=== PATIENT | male | born 1960 | race Caucasian/White ===

== ENCOUNTER 2016-09-28 13:57 | Emergency (ER) | payer OTHER ==
[~2016-09-28] VITALS: Ht 167.6 cm; Wt 42.3 kg
[~2016-09-28 13:57] MED LIST: BENZAMYCIN GE46.6 GM TP; BISAC-EVAC10 MG PR; CALCIUM 500 +1 EACH GT; CEFTIN500 MG PO; DAILY MULTIPLE1 EACH GT; DAILY VITAMIN1 EAC8 GT; DEPAKENE250 MG/5 M PO; DIAZEPAM5 MG GT; FOSAMAX70 MG GT; FOSAMAX70 MG PO; HIBICLENS118 ML TP; MOTRIN400 MG GT; NEURONTIN300 MG GT; PROMETHAZINE HC25 MG PR; SUDOGEST60 MG PO; TEGRETOL200 MG GT; TYLENOL REGULA325 MG GT; VIMPAT10 MG/1 ML GT; [UNRECOGNIZED DRUG - OTHER] GT
[2016-09-28 16:57] VITALS: BP 123/89
== END 2016-09-28 16:58 | disposition home or self-care (01) ==
LOC: EME → EDBD 13:57 → EME 13:57
DX: R06.00 Dyspnea, unspecified (principal); R09.02 Hypoxemia; F72 Severe intellectual disabilities; Z93.1 Gastrostomy status
CPT/HCPCS: 71010

== ENCOUNTER 2017-11-11 10:40 | Inpatient (IN) | payer OTHER ==
[~2017-11-11] VITALS: Ht 152.4 cm; Wt 51.2 kg
[~2017-11-11 10:40] MED LIST changes: +DEPAKENE250 MG/5 M GT; -DEPAKENE250 MG/5 M PO
[2017-11-11 11:55] LABS: BASOPHIL (%) 0.6 % (0-1); EOSINOPHIL (%) 1.2 % (0-5); EOSINOPHIL COUNT 0.1 K/uL (0-0.3); HEMATOCRIT 36.3 % (38.0-50.0); HEMOGLOBIN 12.1 G/DL (12.5-16.6); LYMPHOCYTE (%) 63.6 % (15-42); LYMPHOCYTE COUNT 3.1 K/uL (1.0-2.8); MCHC 33.3 G/DL (30.0-36.0); MCV 98.9 FL (86-99); MONOCYTE (%) 8.4 % (3-12); MONOCYTE COUNT 0.4 K/uL (0-0.8); NEUTROPHIL (%) 26.2 % (45-76); NEUTROPHIL COUNT 1.3 K/uL (1.8-6.4); PLATELET COUNT 136 K/uL (156-360); RBC DIS.WIDTH-CV 13.2 % (11.8-14.6); RBC DIS.WIDTH-SD 48.1 % (39-53); RED BLOOD COUNT 3.67 M/uL (4.00-5.50); WHITE BLOOD COUNT 4.9 K/uL (4.1-10.2)
[2017-11-11 12:00] LABS: APPEARANCE SL.HAZY ((CLEAR)); BILIRUBIN NEGATIVE; BLOOD NEGATIVE; COLOR AMBER ((YELLOW)); GLUCOSE (STRIP) NEGATIVE; KETONES NEGATIVE; LEUKOCYTES NEGATIVE; NITRITE NEGATIVE; PROTEIN (STRIP) NEGATIVE; SPECIFIC GRAVITY 1.021 (1.000-1.030)
[2017-11-11 12:01] LABS: INTER. NORMALIZED RATIO 1.1
[2017-11-11 12:04] LABS: ALBUMIN 3.3 g/dL (3.2-4.8); CHLORIDE 100 mEq/L (99-109); POTASSIUM 4.3 mEq/L (3.7-5.4); PTT 34.2 SEC (25-37); SODIUM 136 mEq/L (136-147)
[2017-11-11 12:07] LABS: GLUCOSE 75 mg/dL (70-99)
[2017-11-11 12:09] LABS: TOTAL BILIRUBIN 0.4 mg/dL (0.0-1.0)
[2017-11-11 12:09] LABS: BACTERIA NONE SEEN /HPF; EPITHELIAL CELLS NONE SEEN /HPF; MUCUS TRACE /LPF; RED BLOOD CELLS 0-5 /HPF (0-5); UCUL ADDED? YES
[2017-11-11 12:10] LABS: ALKALINE PHOSPHATASE 80 IU/L (3-129)
[2017-11-11 12:11] LABS: CREATININE 0.6 mg/dL (0.6-1.3); GFR ESTIMATE (CALCULATED) > 59 mL/min/ (58.99-99999)
[2017-11-11 12:12] LABS: AST (GOT) 16 IU/L (2-34); UREA NITROGEN (BUN) 14 mg/dL (9-23)
[2017-11-11 12:13] LABS: ALT (GPT) 13 IU/L (3-49)
[2017-11-11 12:17] LABS: TROP-I INTERPRETATION NEGATIVE; TROPONIN-I < 0.01 ng/mL (0.0-0.30)
[2017-11-11] MEDS ORDERED: DULCOLAX10 MG PR (12:48)
[2017-11-11] MEDS ORDERED: LOPERAMIDE2 MG GT (13:01)
[2017-11-11 15:24] LABS: THYROTROPIN (TSH) 0.73 MIU/L (0.4-5.5)
[2017-11-11 16:34] LABS: FOLIC ACID (FOLATE) > 22.0 NG/ML (5.0-22.0)
[2017-11-11 17:32] VITALS: BP 152/91
[2017-11-11 23:35] VITALS: BP 135/90
[2017-11-12 04:05] VITALS: BP 129/92
[2017-11-12 05:43] LABS: HEMATOCRIT 36.8 % (38.0-50.0); HEMOGLOBIN 12.2 G/DL (12.5-16.6); MCH 32.5 PG (29.0-34.0); MCHC 33.2 G/DL (30.0-36.0); MCV 98.1 FL (86-99); PLATELET COUNT 155 K/uL (156-360); RBC DIS.WIDTH-CV 13.2 % (11.8-14.6); RBC DIS.WIDTH-SD 47.4 % (39-53); RED BLOOD COUNT 3.75 M/uL (4.00-5.50)
[2017-11-12 05:50] LABS: BENZODIAZEPINES, URINE SCREEN Negative (200 ng/mL)
[2017-11-12 06:11] LABS: ALBUMIN 3.4 G/DL (3.2-4.8); ALKALINE PHOSPHATASE 83 IU/L (3-129); ALT (GPT) 12 IU/L (3-49); AST (GOT) 21 IU/L (2-34); CHLORIDE 105 MEQ/L (99-109); CREATININE 0.5 MG/DL (0.6-1.3); GFR ESTIMATE (CALCULATED) > 59 mL/min/ (58.99-99999); GLUCOSE 78 mg/dL (70-99); SODIUM 138 MEQ/L (136-147); TOTAL BILIRUBIN 0.4 MG/DL (0.0-1.0); TOTAL PROTEIN 6.3 G/DL (6.4-8.3); UREA NITROGEN (BUN) 10 mg/dL (9-23)
[2017-11-12 09:00] VITALS: BP 124/82
[2017-11-12 12:16] VITALS: BP 113/75
[2017-11-12 15:42] VITALS: BP 109/59
[2017-11-12 19:35] VITALS: BP 105/64
[2017-11-12 22:37] VITALS: BP 94/55
[2017-11-13 03:04] VITALS: BP 113/56
[2017-11-13 07:14] VITALS: BP 96/53
[2017-11-13 08:39] VITALS: BP 131/77
[2017-11-13 15:54] VITALS: BP 140/80
[2017-11-13 23:59] VITALS: BP 116/63
[2017-11-14 03:00] VITALS: BP 141/69
[2017-11-14 05:46] LABS: HEMOGLOBIN 11.9 G/DL (12.5-16.6); MCH 33.1 PG (29.0-34.0); MCV 97.5 FL (86-99); PLATELET COUNT 158 K/uL (156-360); RBC DIS.WIDTH-CV 13.1 % (11.8-14.6); RBC DIS.WIDTH-SD 46.8 % (39-53); RED BLOOD COUNT 3.59 M/uL (4.00-5.50); WHITE BLOOD COUNT 3.5 K/uL (4.1-10.2)
[2017-11-14 07:06] VITALS: BP 98/55
[2017-11-14 11:36] VITALS: BP 120/67
[2017-11-14 15:05] VITALS: BP 120/79
[2017-11-14 18:45] VITALS: BP 135/62
[2017-11-14 23:31] VITALS: BP 132/73
[2017-11-15 06:29] LABS: BASOPHIL (%) 0.6 % (0-1); EOSINOPHIL (%) 0.6 % (0-5); HEMATOCRIT 37.8 % (38.0-50.0); HEMOGLOBIN 12.9 G/DL (12.5-16.6); IMMATURE GRANULOCYTE (%) 0.2 % (0.0-0.7); LYMPHOCYTE (%) 45.7 % (15-42); LYMPHOCYTE COUNT 2.3 K/uL (1.0-2.8); MCH 32.7 PG (29.0-34.0); MCHC 34.1 G/DL (30.0-36.0); MCV 95.9 FL (86-99); MONOCYTE (%) 11.2 % (3-12); MONOCYTE COUNT 0.6 K/uL (0-0.8); NEUTROPHIL (%) 41.7 % (45-76); NEUTROPHIL COUNT 2.1 K/uL (1.8-6.4); PLATELET COUNT 168 K/uL (156-360); RBC DIS.WIDTH-SD 46.2 % (39-53); RED BLOOD COUNT 3.94 M/uL (4.00-5.50)
[2017-11-15 07:27] VITALS: BP 105/58
[2017-11-15 07:29] LABS: ALBUMIN 3.4 G/DL (3.2-4.8); ALKALINE PHOSPHATASE 100 IU/L (3-129); ALT (GPT) 13 IU/L (3-49); AST (GOT) 16 IU/L (2-34); CHLORIDE 98 MEQ/L (99-109); CREATININE 0.5 MG/DL (0.6-1.3); GFR ESTIMATE (CALCULATED) > 59 mL/min/ (58.99-99999); GLUCOSE 76 mg/dL (70-99); POTASSIUM 4.6 MEQ/L (3.7-5.4); SODIUM 135 MEQ/L (136-147); TOTAL BILIRUBIN 0.4 MG/DL (0.0-1.0); TOTAL PROTEIN 6.4 G/DL (6.4-8.3)
[2017-11-15 07:32] LABS: UREA NITROGEN (BUN) 23 mg/dL (9-23)
[2017-11-15 16:06] VITALS: BP 106/72
[2017-11-16 01:05] VITALS: BP 110/62
[2017-11-16 07:00] LABS: CHLORIDE 94 MEQ/L (99-109); CREATININE 0.5 MG/DL (0.6-1.3); GFR ESTIMATE (CALCULATED) > 59 mL/min/ (58.99-99999); GLUCOSE 86 mg/dL (70-99); POTASSIUM 4.5 MEQ/L (3.7-5.4); SODIUM 130 MEQ/L (136-147); UREA NITROGEN (BUN) 19 mg/dL (9-23)
[2017-11-16 07:52] VITALS: BP 162/71
[2017-11-16] MEDS ORDERED: Chronulac,Cephulac,E GT ×2 (11:29→16:51)
[2017-11-16 16:59] VITALS: BP 148/73
== END 2017-11-16 18:06 | disposition home or self-care (01) | DRG 948 ==
LOC: EME 10:40 → EDOF 14:04 → 5EAST 14:04 → ENRESERV 14:06 → 4EAST 16:54 → ENRESERV 11-13 15:01 → 5EAST 11-13 19:05
PROVIDERS: Emergency Medicine; Hospitalist; Internal Medicine; Student in an Organized Health Care Education/Training Program
DX: R41.82 Altered mental status, unspecified (principal); I95.9 Hypotension, unspecified; G40.909 Epilepsy, unspecified, not intractable, without status epilepticus; R00.1 Bradycardia, unspecified; G31.9 Degenerative disease of nervous system, unspecified; R68.0 Hypothermia, not associated with low environmental temperature; Z66 Do not resuscitate; R29.898 Other symptoms and signs involving the musculoskeletal system; Z93.1 Gastrostomy status; J45.909 Unspecified asthma, uncomplicated; G80.9 Cerebral palsy, unspecified; Z79.899 Other long term (current) drug therapy; R13.10 Dysphagia, unspecified; F79 Unspecified intellectual disabilities; R53.83 Other fatigue; Z79.83 Long term (current) use of bisphosphonates
CPT/HCPCS: 70450; 71045; 80048; 80053; 80164; 80306 90; 81003; 82140; 82533 91; 82607; 82746; 82948; 83605; 83735; 84443; 84484; 85025; 85027; 85610; 85730; 87040; 87086; 93005; 95819; 99281; 99285; J1644; J7030; J7040